=== PATIENT | male | born 1960 | race Caucasian/White ===

== ENCOUNTER → 2019-02-11 | Outpatient (CLI) | payer MEDICARE, OTHER ==
--- NOTE | 2019-02-11 16:24 | Diagnostic Imaging Report ---
PROCEDURE: MRI left upper extremity without contrast. TECHNIQUE: Multiplanar, multisequence MR imaging of the left shoulder was performed without contrast. COMPARISON: None available. INDICATION: Left shoulder pain with decreased range of motion. FINDINGS: Rotator cuff: No high-grade partial or full-thickness rotator cuff tear. Low-grade partial-thickness bursal-sided tearing/fraying of the posterior aspect of the supraspinatus. The remainder of the rotator cuff is intact. No rotator cuff muscle atrophy. Glenoid labrum: No displaced glenoid labral tear. Potential nondisplaced degenerative tearing in the superior labrum is present. Long head of biceps: Long head of biceps is normally positioned within the bicipital groove. The intracapsular segment is intact. Bones and cartilage: Humeral head is normal in morphology without fracture or focal osseous lesion. No glenohumeral chondromalacia. Mild hypertrophic degenerative changes of acromioclavicular joint. Soft tissues: No glenohumeral joint effusion. No MRI findings to suggest adhesive capsulitis. No fluid or inflammatory like signal within the subacromial/subdeltoid space to indicate bursitis. IMPRESSION: 1. Low-grade partial-thickness bursal-sided tearing of the posterior supraspinatus. No full-thickness or retracted rotator cuff tear. 2. Long head of biceps remains intact. 3. 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 Dictated by: Dictated on workstation # [id number]
== END ==
LOC: RAD 13:52
PROVIDERS: ATTEND Nurse Practitioner Family
DX: M75.102 Unspecified rotator cuff tear or rupture of left shoulder, not specified as traumatic (principal); M19.012 Primary osteoarthritis, left shoulder
CPT/HCPCS: 73221

== ENCOUNTER → 2019-03-10 | Outpatient (CLI) | payer MEDICARE ==
--- NOTE | 2019-03-10 15:59 | Diagnostic Imaging Report ---
PROCEDURE: MR imaging cervical spine without contrast. TECHNIQUE: Multiplanar, multisequence MR imaging of the cervical spine was performed without contrast. INDICATION: Neck pain. COMPARISON: There are no prior studies available for comparison. FINDINGS: The T2 parasagittal images show the vertebrae heights and alignment to be generally within normal limits. However there is desiccation of the disc at every level and there is mild narrowing of the disc space at C5-6 and C6-7. Furthermore at the C5-6 level there is a broad-based disc bulge centrally. The disc indents the ventral aspect of the thecal sac and narrows the AP diameter to 7.1 mm. There is also narrowing of the neural foramen bilaterally at this level. There is also a disc bulge centrally at the C6-7 level. The AP diameter of the thecal sac at this level is narrowed to 7.3 mm. There is bilateral neural foraminal narrowing as well. At the C4-5 level there is also a slight disc bulge centrally. The AP diameter of the thecal sac is narrowed to 9.2 mm. There does not appear to be any significant neural foraminal narrowing at C4-5. At the C3-4 level there is a disc bulge eccentric to the right. The disc compresses the right ventral aspect of the thecal sac and narrows the AP diameter to 8.4 mm. There does not appear to be any significant neural foraminal narrowing at this level. At the C2-3 level there is a disc bulge centrally. The AP diameter of the thecal sac is narrowed to 10.4 mm. There is no significant neural foraminal narrowing at this level. There is no abnormal signal arising from the cord or the vertebral bodies to indicate an acute abnormality. There is no sign of a paraspinal mass. IMPRESSION: 1. There is degenerative disc and bony disease throughout the cervical spine. The C5-6 and C6-7 levels are the most severely affected as there is spinal stenosis at both these levels with neural foraminal narrowing bilaterally. There is also moderate stenosis at the C3-4 level but there is no significant neural foraminal narrowing at this level. 2. There is no sign of an acute bony abnormality or of a cord lesion. Dictated by: Dictated on workstation # [id number]
== END ==
LOC: RAD 13:14
PROVIDERS: ATTEND Orthopaedic Surgery
DX: M48.02 Spinal stenosis, cervical region (principal); M50.30 Other cervical disc degeneration, unspecified cervical region; M89.9 Disorder of bone, unspecified
CPT/HCPCS: 72141